=== PATIENT | female | born 1930 | race Caucasian/White ===

== ENCOUNTER 2019-01-27 02:29 | Emergency (ER) | payer MEDICARE, BC ==
[~2019-01-27] VITALS: Ht 170.2 cm; Wt 68.8 kg
[2019-01-27 04:19] VITALS: BP 167/78
== END 2019-01-27 04:28 | disposition home or self-care (01) ==
LOC: ED 04:27
DX: S01.112A Laceration without foreign body of left eyelid and periocular area, initial encounter (principal); S09.90XA Unspecified injury of head, initial encounter; R51 Headache; I10 Essential (primary) hypertension; W22.8XXA Striking against or struck by other objects, initial encounter; Y93.89 Activity, other specified; Y92.009 Unspecified place in unspecified non-institutional (private) residence as the place of occurrence of the external cause; Y99.8 Other external cause status
CPT/HCPCS: 12011; 70450; 72125; 90471; 90715; 93005; 99284

== ENCOUNTER 2019-02-02 07:53 | Emergency (ER) | payer MEDICARE, BC ==
[~2019-02-02] VITALS: Ht 165.1 cm; Wt 67.7 kg
[2019-02-02 07:57] VITALS: BP 151/97
== END 2019-02-02 08:39 | disposition home or self-care (01) ==
LOC: ED 08:33
DX: S01.112D Laceration without foreign body of left eyelid and periocular area, subsequent encounter (principal); X58.XXXD Exposure to other specified factors, subsequent encounter; I10 Essential (primary) hypertension
CPT/HCPCS: 99281